=== PATIENT | male | born 1985 | race Caucasian/White ===

== ENCOUNTER 2016-06-21 11:37 | Emergency (ER) ==
--- NOTE | 2016-06-21 12:24 | PROVIDER DOCUMENTATION ---
HPI-Musculoskeletal Pain/Inj - GENERAL Source: patient - HX OF PRESENT ILLNESS-MUSKULOSKELTAL Quality of Pain: reports: aching Severity in ED: mild Onset/Duration: 1 hour ago Timing: still present, intermittent Modifying Factors: improves with: nothing Any recent injury?: Yes (fell ) Similar Symptoms Previously?: No Recently seen or treated by another doctor?: No - FALL INJURY Location of Pain/Injury: reports: upper extremity (R forearm) Pain Radiation: reports: no radiation Reason for Fall: reports: slipped Symptoms prior to fall:: reports: none Loss of Consciousness: no loss of consciousness Injury Associated Symptoms: reports: arm pain (R forearm). denies: back/neck pain, chest pain, diaphoresis, dizziness, headaches, joint pain, muscle aches, nausea, puncture wound, shortness of breath, sensory/motor loss, snap/crack/pop sensation, pain with inspiration, unable to bear weight, vomiting, weakness, trouble walking - UPPER EXTREMITY PAIN/INJURY Extremities Pain Location: forearm: right (pain ) Context / Method of Injury: reports: fell Associated Symptoms: denies: muscle spasms, numbness in upper ext, sensory/ motor loss, tingling in upper ext, weakness in upper ext <Beatrice Davis - Last Filed: 06/21/16 12:19> <Daniele Steele - Last Filed: 06/21/16 12:43> - GENERAL Chief Complaint: Extremity Pain Stated Complaint: RIGHT ARM INJURY Time Seen by Provider: 06/21/16 12:09 - HX OF PRESENT ILLNESS-MUSKULOSKELTAL Nature of Presenting Problem: Pt is 30 y/o M presents to the ED with R forearm pain. Pt states he was on a ladder and slipped off. Pt denies LOC. Pt denies F. (Beatrice Davis) Review of Systems - Adult - REVIEW OF SYSTEMS - ADULT Constitutional: denies: chills, fever Eyes: denies: blurred vision, double vision Ears, Nose, Mouth & Throat: denies: ear pain, nose pain, throat pain Cardiovascular: denies: chest pain, heart murmur, irregular heart rate Respiratory: denies: cough, shortness of breath, wheezing Gastrointestinal: denies: abdominal pain, diarrhea, nausea, poor appetite, vomiting Genitourinary: denies: dysuria, hematuria Musculoskeletal: reports: other (R forearm pain). denies: bone pain, joint pain , neck pain Integumentary: denies: hives, itching Neurological: denies: dizziness/vertigo, headache/migraines Psychiatric: reports: no symptoms reported Endocrine: reports: no symptoms reported Hematologic/Lymphatic: reports: no symptoms reported Allergic/Immunologic: reports: no symptoms reported All Other Systems: Reviewed and Negative <Beatrice Davis - Last Filed: 06/21/16 12:19> Past History - Adult - PAST MEDICAL HISTORY-ADULT Review of Records: reports: Nursing Assessment Review, Medications Reviewed, Social history reviewed & non-contributory. Major Childhood Illnesses: reports: denies history Cardiovascular: reports: murmur Respiratory: reports: denies history Gastrointestinal: reports: GERD Obstetrical/Gynecological: reports: denies history Genitourinary: reports: denies history Musculoskeletal: reports: denies history Neurological: reports: denies history Psychiatric: reports: bipolar Endocrine/Immune: reports: denies history Other Conditions: reports: denies history - PRIOR SURGERIES/PROCEDURES Surgical/Procedure History: reports: orthopedic (extremity) (right knee), other (groin) - PRIOR HOSPITALIZATIONS Prior Hospitalizations: reports: none - IMMUNIZATION STATUS Childhood Immunizations: See Nurse Assessment Flu Vaccine: See Nurse Assessment - FAMILY HISTORY Family History: reviewed, not pertinent - SOCIAL HISTORY Smoking: chew, less than 1 pack/day Provider spent 3-5 mins advising pt. on dangers of tobacco.: Discussed manners to quit use, and f/u contacts for add'l counseling. Substance Use: denies Living Situation: family <Beatrice Davis - Last Filed: 06/21/16 12:19> Physical Exam-Injury Related - Physical Exam-Injury Related General Appearance: appears well, alert, no apparent distress Eyes: PERRL/EOMI, pink conjunctivae Head, Ears, Nose, Mouth & Throat: normocephalic/atraumatic, moist mucous membranes, normal ENT inspection, TMs normal, pharynx normal Neck: non-tender, full range of motion, supple, normal inspection Respiratory: chest non-tender, lungs clear, normal breath sounds, no pleuratic chest pain, no respiratory distress, no accessory muscle use Cardiovascular: normal peripheral pulses, regular rate, rhythm, no edema, no gallop, no JVD, no murmur Abdominal Exam: normal bowel sounds, non tender, soft, no organomegaly, no pulsatile mass Lymphatic: no adenopathy Back Exam: normal inspection, no CVA tenderness, no vertebral tenderness Extremity: normal range of motion, normal gait, no pedal edema, no calf tenderness, normal capillary refill, pelvis stable, tenderness (R forearm) Integumentary: normal color, warm/dry, abrasion (R forearm) Neurologic: warranty coordinator II-XII nml as tested, grossly normal, no motor/sensory deficits Psych/Mental Status: AL, normal mood/affect, normal thought content, normal thought process, oriented x 3 <Beatrice Davis - Last Filed: 06/21/16 12:19> Progress <Beatrice Davis - Last Filed: 06/21/16 12:19> - XRAY 1 XRAY: Right XRAY Study: Forearm XRAY Interpretation: nad <Daniele Steele - Last Filed: 06/21/16 12:43> - PLAN OF CARE/RESULTS Progress/Plan/Lab Results: Orders Category Date Time Status FOREARM-RIGHT [RAD] Stat Exams 06/21/16 12:11 Ordered Vital Signs - 24 hr 06/21/16 11:55 Temperature 98.2 F Pulse Rate 90 Respiratory 18 Rate Blood Pressure 124/71 O2 Sat by Pulse 100 Oximetry (Beatrice Davis) Orders Category Date Time Status FOREARM-RIGHT [RAD] Stat Exams 06/21/16 12:11 Taken Vital Signs Temp Pulse Resp BP Pulse Ox 06/21/16 11:55 98.2 F 90 18 124/71 100 Penicillins Allergy (Severe, Verified 08/20/15 08:17) seizures No Home Medications 06/21/16 (Daniele Steele) Departure <Beatrice Davis - Last Filed: 06/21/16 12:19> - Departure Time of Disposition Order: 12:43 Certified Medical Emergency: Urgent <Daniele Steele - Last Filed: 06/21/16 12:43> - Departure DIAGNOSIS: Forearm sprain Qualifiers: Encounter type: initial encounter Laterality: right Qualified Code(s): S63.501A - Unspecified sprain of right wrist, initial encounter Forearm abrasion Qualifiers: Encounter type: initial encounter Laterality: right Qualified Code(s): S50.811A - Abrasion of right forearm, initial encounter Disposition: HOME 01 Condition: Good Additional Instructions: Take medication as prescribed. Rest, ice and elevate. Follow up with your primary care provider. ED Follow Up Instructions: You have been treated by a care provider in the Emergency Department. These instructions are being provided to you so you can have an understanding of how to care for yourself upon discharge. Upon discharge from the Emergency Department, you are responsible for making arrangements for follow-up care by a physician of your choice. Take all prescribed medications as directed. Return to the Emergency Department immediately for any new or worsening symptoms. You may call the Physician Referral phone number at [phone] to obtain a list of Physicians who are taking new patients. Prescriptions: Meloxicam [Mobic] 7.5 mg PO DAILY PRN PRN #15 tablet PRN Reason: Pain Attestation - Scribe Verification/Attestation Scribe:: Beatrice Davis Acting as Scribe for:: Daniele Steele Scribe documention review:: This chart was documented by a scribe and accurately reflects the service the provider performed and the decisions made by the provider. <Beatrice Davis - Last Filed: 06/21/16 12:19> - Physician/ Mid-level Attestation Patient care was provided by Mid-level provider (DOCK OPERATOR/PA):: Yes Mid-level provider:: Daniele Steele Mid-level documentation review:: The Mid-level provider documentation, treatment plan and medical decision making was reviewed by the physician who agrees with all treatment and medical decision making by the [facility]. <Daniele Steele - Last Filed: 06/21/16 12:43> Physician Attestation
[2016-06-21 12:47] VITALS: BP 127/75
--- NOTE | 2016-06-21 13:07 | Diag Imaging Result Document ---
PROCEDURE NAME: FOREARM-RIGHT - 06/21/2016 RIGHT FOREARM, TWO VIEWS: FINDINGS: There is no evidence of fracture or dislocation. No other definite bony abnormalities are present. IMPRESSION: No acute disease.
== END 2016-06-21 12:55 | disposition home or self-care (01) ==
LOC: ED 11:37
DX: S63.501A Unspecified sprain of right wrist, initial encounter (principal); S50.811A Abrasion of right forearm, initial encounter; M79.631 Pain in right forearm; W11.XXXA Fall on and from ladder, initial encounter; F17.220 Nicotine dependence, chewing tobacco, uncomplicated; Z71.6 Tobacco abuse counseling; F31.9 Bipolar disorder, unspecified; K21.9 Gastro-esophageal reflux disease without esophagitis
CPT/HCPCS: 99283